=== PATIENT | female | born 1985 | race Caucasian/White ===

== ENCOUNTER 2017-07-17 12:43 | Day surgery (SDC) | payer OTHER ==
[~2017-07-17 12:43] MED LIST: Acetaminophen TAB* 325 MG PO ONE; Buffered Lidocaine 0.9% SYRIN* 5 ML/SYR SYRINGE INTRADERM ONE; Dexamethasone IV* 4 MG/ML 1 ML (4 MG) IV SLOW PU ONE; Famotidine IV* 10 MG/ML 2 ML (20 mg) IV ONE; Lidocaine 2% PF * 5 ML VIAL ONE; Midazolam* 1 MG/ML 2 ML VIAL (2 MG) ONE; Propofol* 10 MG/ML 20 ML BTL IV PUSH ONE; fentaNYL* 50 MCG/ML 2 ML VIAL (100 MCG VIAL) ONE
[2017-07-17] MEDS ORDERED: Acetaminophen TAB* 325 MG ONE (12:54)
[2017-07-17] MEDS ORDERED: Famotidine IV* 10 MG/ML 2 ML (20 mg) ONE (12:54)
[2017-07-17] MEDS ORDERED: Buffered Lidocaine 0.9% SYRIN* 5 ML/SYR SYRINGE ONE (12:54)
[2017-07-17] MEDS ORDERED: Dexamethasone IV* 4 MG/ML 1 ML (4 MG) ONE (12:54)
[2017-07-17] MEDS ORDERED: Lidocaine 1% INJ* 10 MG/ML 30 ML SDV ONE (13:46)
[2017-07-17] MEDS ORDERED: Ondansetron INJ* 2 MG/ML VIAL IV PRN (14:20)
[2017-07-17] MEDS ORDERED: Ibuprofen TAB* 600 MG PO PRN (14:20)
[2017-07-17 16:25] VITALS: BP 120/79
--- NOTE | 2017-07-18 02:41 | OP ---
DATE OF OPERATION: 07/17/17 [facility] DATE OF : 81. SURGEON: Med Son MD. ANESTHESIOLOGIST: Dr. Melissa Villalpando. ANESTHESIA: Spinal. PRE-OP DIAGNOSES: Dyspareunia and vaginal polyp. POST-OP DIAGNOSES: Dyspareunia and vaginal polyp. OPERATIVE PROCEDURE: Revision of vaginal laceration and vaginal polypectomy. ESTIMATED BLOOD LOSS: 30 cc. URINE OUTPUT: Not measured. IV FLUIDS: 500 cc lactated Ringer's. MATERIALS TO LAB: Vaginal polyp fragments. INDICATIONS: This patient was a 31-year-old 1 para 1 about 11 months who presented today for revision of her vaginal laceration from her vaginal delivery last year. The patient had reported persistent pain with intercourse and some bleeding. On examination, the posterior introitus appeared to be dense and very tender to palpation. In addition, there were a couple of polypoid areas near the introitus, which were likely unhealed granulation tissue. As the patient's symptoms were not improved and it had been almost a year, decision was made to proceed with revision of the laceration repair. She was extensively counseled and consent was signed. FINDINGS: Posterior introitus vaginal epithelium was already very friable just from cleaning with a sponge prior to surgery. Otherwise, there were no significant findings. COMPLICATIONS: None. DESCRIPTION OF PROCEDURE: The risks, benefits, and alternatives were described to the patient and informed consent was obtained. The patient was taken to the operating room with IV running where spinal anesthesia was induced and found to be adequate. The patient was prepped and draped in the normal sterile fashion in the high lithotomy position in [facility]. A timeout was performed. The lower posterior vagina was injected with 1% lidocaine. A #15 blade scalpel was then used to excise the superficial vaginal tissue, which was already very friable. The vaginal granulation tissue was also excised superficially. An electro-cautery was used to cauterize the more significantly friable areas. 3- 0 Vicryl Rapide was then used to reapproximate the vaginal epithelium down to the introitus. At that time, there was excellent hemostasis and good reapproximation seemed to be present. The patient tolerated the procedure well. Sponge, lap, and needle counts were correct x2. [id number]/[facility] #: [id number] [facility]
== END 2017-07-17 16:49 | disposition home or self-care (01) ==
LOC: OR 12:43
PROVIDERS: ATTEND Obstetrics & Gynecology
DX: N84.2 Polyp of vagina (principal); L92.8 Other granulomatous disorders of the skin and subcutaneous tissue; T81.33XS Disruption of traumatic injury wound repair, sequela; N94.10 Unspecified dyspareunia; X58.XXXS Exposure to other specified factors, sequela; Z88.1 Allergy status to other antibiotic agents; N89.8 Other specified noninflammatory disorders of vagina
CPT/HCPCS: 81025; 88305; A9270-GY; J1100; J2250; J2704; J3010